=== PATIENT | male | born 2000 | race Caucasian/White ===

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

== ENCOUNTER 2019-04-07 01:43 | Emergency (ER) | payer OTHER ==
[~2019-04-07] VITALS: Ht 182.9 cm; Wt 70.5 kg
[2019-04-07 04:21] VITALS: BP 117/60
== END 2019-04-07 04:23 | disposition home or self-care (01) ==
LOC: M ED 01:43
DX: E86.0 Dehydration (principal); F17.210 Nicotine dependence, cigarettes, uncomplicated